=== PATIENT | female | born 1955 | race American Indian/Alaskan Native ===

== ENCOUNTER 2017-01-31 18:07 | Emergency (ER) | payer MEDICAID, OTHER ==
[2017-01-31] MEDS ORDERED: Sodium Chloride 0.9% 10 ML Syringe FLUSH PRN (18:20)
--- NOTE | 2017-01-31 18:28 | EDM.PDOC ---
<Awa Daly - Last Filed: 01/31/17 18:58> ED HPI GENERAL MEDICAL PROBLEM - General Chief Complaint: Chest Pain Stated Complaint: CHEST PAINS, [id number] Time Seen by Provider: 01/31/17 18:22 Source of Information: Reports: Patient History Limitations: Reports: No Limitations - History of Present Illness INITIAL COMMENTS - FREE TEXT/NARRATIVE: Patient presents to the ER with sternal c/o chest pains beginning this afternoon. She states she does have some SOB as well. She has a hx of ND in 2013, and stent placement. She denies nausea or vomiting, fever or chills, recent illness. Onset: Today Location: Reports: Chest Quality: Reports: Ache, Burning Severity: Moderate Improves with: Reports: None Worsens with: Reports: None Associated Symptoms: Reports: Chest Pain Mid-Sternal Chest Pain Score (Numeric/FACES): 10 - Related Data Allergies Allergy/AdvReac Type Severity Reaction Status Date / Time Penicillins Allergy Cannot Verified 09/20/15 13:04 Remember Home Meds: Home Meds Aspirin [Herrera Chewable] 81 mg PO DAILY 02/05/14 [History] Lisinopril 10 mg PO DAILY 02/05/14 [History] metFORMIN [Glucophage] 1,000 mg PO BIDM 02/05/14 [History] Clopidogrel Bisulfate [Clopidogrel] 75 mg PO DAILY 07/21/14 [History] Cyclobenzaprine [Flexeril] 10 mg PO TID PRN 07/21/14 [History] atorvaSTATin [Lipitor] 80 mg PO BEDTIME 07/21/14 [History] Acetaminophen [Tylenol] 650 mg PO Q6HR PRN 06/11/16 [History] FLUoxetine [PROzac] 20 mg PO DAILY 06/11/16 [History] Gabapentin [Neurontin] 300 mg PO BID 06/11/16 [History] glyBURIDE [Glyburide] 5 mg PO BIDMEALS 06/11/16 [History] Ibuprofen 1 tab PO ASDIRECTED PRN 01/31/17 [History] Isosorbide Mononitrate [Isosorbide Mononitrate ER] 0.5 tab PO DAILY 01/31/17 [ History] Metoprolol Tartrate [Metoprolol Tartrate] 12.5 mg PO DAILY 01/31/17 [History] Past Medical History HEENT History: Reports: None Cardiovascular History: Reports: CAD, High Cholesterol, Hypertension, ND Respiratory History: Reports: None Gastrointestinal History: Reports: None Genitourinary 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: Reports: None 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: Musculoskeletal History: Reports: Osteoarthritis Neurological History: Reports: None Psychiatric History: Reports: None Endocrine/Metabolic History: Reports: Diabetes, Type II, Obesity/BMI 30+ Hematologic History: Reports: None Immunologic History: Reports: None Oncologic (Cancer) History: Reports: None Dermatologic History: Reports: None - Infectious Disease History Infectious Disease History: Reports: Chicken Pox - Past Surgical History Cardiovascular Surgical History: Reports: Coronary Artery Stent GI Surgical History: Reports: Appendectomy, Cholecystectomy, Hernia Repair/Other Musculoskeletal Surgical History: Reports: Other (See Below) Social & Family History - Family History Cardiac: Reports: CAD, High Cholesterol, Hypertension GI: Reports: Cholelithiasis : Reports: Renal Disease/Insufficiency Musculoskeletal: Reports: Arthritis Endocrine/Metabolic: Reports: Diabetes, type II, Obesity/MBI 30+ - Tobacco Use Smoking Status *Q: Current Every Day Smoker Years of Tobacco use: 41 Packs/Tins Daily: 0.5 Used Tobacco, but Quit: No Second Hand Smoke Exposure: No - Caffeine Use Caffeine Use: Reports: Coffee - Alcohol Use Days Per Week of Alcohol Use: 0 - Recreational Drug Use Recreational Drug Use: No - Living Situation & Occupation Living situation: Reports: with Family Occupation: Employed ED ROS GENERAL - Review of Systems Review Of Systems: See Below Constitutional: Reports: No Symptoms HEENT: Reports: No Symptoms Respiratory: Reports: Shortness of Breath Cardiovascular: Reports: Chest Pain Endocrine: Reports: No Symptoms ED EXAM, GENERAL - Physical Exam Exam: See Below Exam Limited By: No Limitations General Appearance: Alert, WD/WN, Anxious Throat/Mouth: Normal Inspection, Normal Lips Head: Atraumatic, Normocephalic Neck: Normal Inspection, Supple, Non-Tender, Full Range of Motion Respiratory/Chest: No Respiratory Distress Cardiovascular: Normal Peripheral Pulses, Regular Rate, Rhythm, No Gallop, No JVD, No Murmur, No Rub GI/Abdominal: Normal Bowel Sounds, Soft, Tender (Female) Exam: Deferred Rectal (Female) Exam: Deferred Back Exam: Normal Inspection, Full Range of Motion Extremities: Normal Inspection, Normal Range of Motion, Non-Tender, Pedal Edema Neurological: Alert, Oriented Psychiatric: Normal Affect, Normal Mood Skin Exam: Warm, Dry, Intact, Normal Color, No Rash Lymphatic: No Adenopathy EKG INTERPRETATION EKG Date: 01/31/17 Time: 18:11 Rhythm: NSR Rate (Beats/Min): 94 [place]: Normal P-Wave: Present QRS: Normal ST-T: Normal QT: Normal Comparison: No Change Course - Vital Signs Last Recorded V/S: Last Vital Signs Temp 97.3 F 01/31/17 18:08 Pulse 93 01/31/17 18:08 Resp 24 H 01/31/17 18:08 BP 140/73 01/31/17 18:08 Pulse Ox 98 01/31/17 18:08 - Orders/Labs/Meds Orders: Active Orders 24 hr Category Date Time Status EKG Documentation Completion [RC] STAT Care 01/31/17 18:21 Active Peripheral IV Care [RC] . DIRECTED Care 01/31/17 18:22 Active Chest 1V Frontal [CR] Stat Exams 01/31/17 18:21 Taken UA W/MICROSCOPIC [URIN] Stat Lab 01/31/17 18:21 Uncollected Sodium Chloride 0.9% [Saline Flush] Med 01/31/17 18:20 Active 10 ml FLUSH ASDIRECTED PRN Peripheral IV Insertion Adult [OM.PC] Stat Oth 01/31/17 18:21 Ordered Medication Orders Sodium Chloride (Saline Flush) 10 ml FLUSH ASDIRECTED PRN PRN Reason: Keep Vein Open Last Admin: 01/31/17 20:03 Dose: 10 ml Labs: Laboratory Tests 01/31/17 01/31/17 Range/Units 18:25 18:25 WBC 12.5 H (5.0-10.0) 10^3/uL RBC 4.84 (4.2-5.4) 10^6/uL Hgb 13.1 (12.0-16.0) g/dL Hct 40.6 (37.0-47.0) % MCV 83.9 (80-100) fL MCH 27.1 (27.0-34.0) pg MCHC 32.3 L (33.0-35.0) g/dL Plt Count 277 (150-450) 10^3/uL Neut % (Auto) 58.3 (42.2-75.2) % Lymph % (Auto) 32.1 (20.5-50.1) % [place] % (Auto) 6.9 (2-8) % Eos % (Auto) 2.5 (1.0-3.0) % Baso % (Auto) 0.2 (0.0-1.0) % Sodium 138 (135-145) mmol/L Potassium 3.6 (3.6-5.0) mmol/L Chloride 102 (101-111) mmol/L Carbon Dioxide 23.0 (21.0-31.0) mmol/L Anion Gap 16.6 BUN 15 (7-18) mg/dL Creatinine 0.6 (0.6-1.3) mg/dL Est Cr Clr Drug Dosing 88.60 mL/min Estimated GFR (MDRD) > 60 BUN/Creatinine Ratio 25.00 Glucose 186 H (74-105) mg/dL Calcium 8.9 (8.4-10.2) mg/dl Total Bilirubin 0.3 (0.2-1.0) mg/dL AST 33 (10-42) IU/L ALT 28 (10-60) IU/L Alkaline Phosphatase 55 (42-121) IU/L Troponin I < 0.02 (0.00-0.02) ng/ml Total Protein 7.1 (6.7-8.2) g/dl Albumin 3.9 (3.2-5.5) g/dl Globulin 3.2 Albumin/Globulin Ratio 1.22 Meds: Medications Generic Name Dose Route Start Last Admin Trade Name Freq PRN Reason Stop Dose Admin Sodium Chloride 10 ml 01/31/17 18:20 01/31/17 20:03 Saline Flush FLUSH 10 ml ASDIRECTED PRN Administration Keep Vein Open Discontinued Medications Generic Name Dose Route Start Last Admin Trade Name Freq PRN Reason Stop Dose Admin Al Hydroxide/Mg Hydroxide 30 ml 01/31/17 19:50 01/31/17 20:02 Gi Cocktail PO 01/31/17 19:51 30 ml ONETIME ONE Administration Pantoprazole Sodium 40 mg/ 100 mls @ 20 mls/hr 01/31/17 19:51 Sodium Chloride IV .CONTINUOS MENDEL Pantoprazole Sodium 40 mg 01/31/17 19:58 01/31/17 20:03 Protonix Iv IVPUSH 01/31/17 19:59 40 mg ONETIME ONE Administration Departure - Departure Disposition: Home, Self-Care 01 Clinical Impression: Gastroesophageal reflux disease Qualifiers: Esophagitis presence: esophagitis presence not specified Qualified Code(s): K21.9 - Gastro-esophageal reflux disease without esophagitis Instructions: Nonspecific Chest Pain, [id number], Indigestion, [id number], Heartburn, [id number] Forms: ED Department Discharge Additional Instructions: Symptoms likely related to acid reflux. Omeprazole 20 mg orally twice a day thirty minutes before meal for acid reflux. Prescription provided. Follow up with primary care physician next week at the appointment that you already have. Continue other home medications. <Sonu Street - Last Filed: 01/31/17 20:50> Course - Re-Assessments/Exams Free Text/Narrative Re-Assessment/Exam: 01/31/17 19:52 Patient care was taken over at shift change. Re-evaluation of the patient demonstrated that she has been symptomatic since yesterday. She states she has been feeling "prickly" sensation along middle of her chest (points along the sternum) since yesterday. This is intermittent in nature. She has also been having more acid reflux lately but she is not taking any medication for it. She has also been more active lately and has been walking more. When she overexerts herself, she starts to have more of the "prickly" sensation along with feeling short of breath and having dry cough. Due to overexertion she has also been feeling her legs are swelling more. When she rests then her symptoms are better. She continues to smoke cigarettes. She states she has had a heart attack around 01/2014 and she has one stent in place. She requires being compliant with medications, including aspirin and plavix. She reports she will be following up with PCP Dr. Diehl next week. She is currently feeling better and has been resting comfortably in the ER. Her CV and Resp exams are fairly unremarkable but she has chest wall tenderness upon palpation. She has non-pitting 1+ LE edema. Vitals stable. 01/31/17 20:00 Departure - Departure Time of Disposition: 20:46 Condition: Fair
[2017-01-31 18:36] VITALS: BP 140/73
[2017-01-31 18:51] LABS: CHLORIDE,CL 102 mmol/L (101-111); SODIUM,NA 138 mmol/L (135-145)
[2017-01-31] MEDS ORDERED: GI Cocktail Oral Solution 30 ML PO ONE (19:50)
[2017-01-31] MEDS ORDERED: Pantoprazole 40 MG in Sodium Chloride 0.9% 100 ML IV SCH (19:51)
[2017-01-31] MEDS ORDERED: Pantoprazole 40 MG Vial IVPUSH ONE (19:58)
--- NOTE | 2017-02-04 13:29 | EKG ---
01/31/2017 - NEHEMIAS BRUNO - Qian 12-lead EKG shows normal sinus rhythm with heart rate of 94, W[place] interval of 136, QTc of 476. No significant ST elevation or ST depression noted on this 12- lead EKG. [facility] /[id number]
== END 2017-01-31 21:00 | disposition home or self-care (01) ==
LOC: DL.ED 18:07
DX: K21.9 Gastro-esophageal reflux disease without esophagitis (principal); I25.10 Atherosclerotic heart disease of native coronary artery without angina pectoris; E78.00 Pure hypercholesterolemia, unspecified; I10 Essential (primary) hypertension; I25.2 Old myocardial infarction; E11.9 Type 2 diabetes mellitus without complications; E66.9 Obesity, unspecified; M19.90 Unspecified osteoarthritis, unspecified site; F17.210 Nicotine dependence, cigarettes, uncomplicated; Z90.49 Acquired absence of other specified parts of digestive tract; Z95.5 Presence of coronary angioplasty implant and graft; Z88.0 Allergy status to penicillin; Z79.899 Other long term (current) drug therapy; Z79.82 Long term (current) use of aspirin
CPT/HCPCS: 36415; 71010; 80053; 84484; 85025; 93005; 96374; 99285; A9270; C9113; J7050

== ENCOUNTER 2017-06-15 12:49 | Emergency (ER) | payer MEDICAID, OTHER | END 2017-06-15 13:21 | LOC: DL.ED 12:49 | DX: Z53.21 Procedure and treatment not carried out due to patient leaving prior to being seen by health care provider (principal) ==

== ENCOUNTER 2017-07-18 18:24 | Emergency (ER) | payer MEDICAID, OTHER ==
[2017-07-18 18:41] VITALS: BP 130/58
== END 2017-07-18 20:29 | disposition left against medical advice (07) ==
LOC: DL.ED 18:24
DX: Z53.21 Procedure and treatment not carried out due to patient leaving prior to being seen by health care provider (principal)

== ENCOUNTER 2018-09-22 20:53 | Emergency (ER) | payer MEDICARE, MEDICAID ==
[2018-09-22 21:21] VITALS: BP 141/59
--- NOTE | 2018-09-22 22:29 | EDM.PDOC ---
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 No clinic visit. No fever or chills , no flank pain, no nausea or vomiting. Diabetic, denies elevation in blood sugars Bladder Pain Score (Numeric/FACES): 10 - Related Data Allergies Allergy/AdvReac Type Severity Reaction Status Date / Time Penicillins Allergy Cannot Verified 09/22/18 21:26 Remember Home Meds: Home Meds Aspirin [Herrera Chewable] 81 mg PO DAILY 02/05/14 [History] Lisinopril 10 mg PO DAILY 02/05/14 [History] metFORMIN [Glucophage] 1,000 mg PO BIDM 02/05/14 [History] Clopidogrel Bisulfate [Clopidogrel] 75 mg PO DAILY 07/21/14 [History] Cyclobenzaprine [Flexeril] 10 mg PO TID PRN 07/21/14 [History] atorvaSTATin [Lipitor] 80 mg PO BEDTIME 07/21/14 [History] Acetaminophen [Tylenol] 650 mg PO Q6HR PRN 06/11/16 [History] FLUoxetine [PROzac] 20 mg PO DAILY 06/11/16 [History] Gabapentin [Neurontin] 300 mg PO BID 06/11/16 [History] glyBURIDE [Glyburide] 5 mg PO BIDMEALS 06/11/16 [History] Ibuprofen 1 tab PO ASDIRECTED PRN 01/31/17 [History] Isosorbide Mononitrate [Isosorbide Mononitrate ER] 0.5 tab PO DAILY 01/31/17 [ History] Metoprolol Tartrate 12.5 mg PO DAILY 01/31/17 [History] Past Medical History HEENT History: Reports: None Cardiovascular History: Reports: CAD, High Cholesterol, Hypertension, HI Respiratory History: Reports: None Gastrointestinal History: Reports: None Genitourinary History: Reports: 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: Musculoskeletal History: Reports: Osteoarthritis Other Musculoskeletal History: restless legs Neurological History: Reports: None Psychiatric History: Reports: None Endocrine/Metabolic History: Reports: Diabetes, Type II, Obesity/BMI 30+ Hematologic History: Reports: None Immunologic History: Reports: None Oncologic (Cancer) History: Reports: None Dermatologic History: Reports: None - Infectious Disease History Infectious Disease History: Reports: Chicken Pox - Past Surgical History Cardiovascular Surgical History: Reports: Coronary Artery Stent GI Surgical History: Reports: Appendectomy, Cholecystectomy, Hernia Repair/Other Social & Family History - Family History Cardiac: Reports: CAD, High Cholesterol, Hypertension GI: Reports: Cholelithiasis : Reports: Renal Disease/Insufficiency Musculoskeletal: Reports: Arthritis Endocrine/Metabolic: Reports: Diabetes, type II, Obesity/MBI 30+ - Tobacco Use Smoking Status *Q: Current Every Day Smoker Years of Tobacco use: 43 Packs/Tins Daily: 1 Second Hand Smoke Exposure: Yes - Caffeine Use Caffeine Use: Reports: Coffee - Recreational Drug Use Recreational Drug Use: No - Living Situation & Occupation Living situation: Reports: with Family Occupation: Employed ED ROS GENERAL - Review of Systems Review Of Systems: ROS reveals no pertinent complaints other than HPI. ED EXAM, RENAL/ - Physical Exam Exam: See Below Exam Limited By: No Limitations General Appearance: Alert, No Apparent Distress Eye Exam: Bilateral Eye: EOMI Ears: Normal External Exam, Hearing Grossly Normal Nose: Normal Inspection Throat/Mouth: Normal Inspection, Normal Voice Head: Atraumatic, Normocephalic Neck: Normal Inspection Respiratory/Chest: No Respiratory Distress, Lungs Clear Cardiovascular: Normal Peripheral Pulses, Regular Rate, Rhythm GI/Abdominal: Normal Bowel Sounds, Soft, Tender (suprapubic) Back Exam: Normal Inspection. No: CVA Tenderness (L), CVA Tenderness (R) Neurological: Alert, Oriented Psychiatric: Normal Affect Skin Exam: Warm, Dry, Intact, Normal Color Course - Vital Signs Last Recorded V/S: Last Vital Signs Temp 97.8 F 09/22/18 21:18 Pulse 82 09/22/18 21:18 Resp 18 09/22/18 21:18 BP 141/59 H 09/22/18 21:18 Pulse Ox 98 09/22/18 21:18 - Orders/Labs/Meds Orders: Active Orders 24 hr Category Date Time Status CULTURE URINE [RM] Stat Lab 09/22/18 21:28 Received Labs: Laboratory Tests 09/22/18 Range/Units 21:28 Urine Color Light yellow (YELLOW) Urine Appearance Clear (CLEAR) Urine pH 6.5 (5.0-9.0) Ur Specific [place] <= 1.005 (1.005-1.030) Urine Protein Trace H (NEGATIVE) Urine Glucose (UA) Negative (NEGATIVE) Urine Ketones Negative (NEGATIVE) Urine Occult Blood Moderate H (NEGATIVE) Urine Nitrite Negative (NEGATIVE) Urine Bilirubin Negative (NEGATIVE) Urine Urobilinogen 0.2 (0.2-1.0) mg/dL Ur Leukocyte Esterase Small H (NEGATIVE) Urine RBC 0-5 /HPF Urine WBC 30-40 H (0-5/HPF) /HPF Ur Epithelial Cells Rare /HPF Amorphous Sediment Rare (0/HPF) /HPF Urine Bacteria Rare (0-FEW/HPF) /HPF Urine Mucus Not seen /LPF Meds: Medications Discontinued Medications Generic Name Dose Route Start Last Admin Trade Name Naveenq PRN Reason Stop Dose Admin Ciprofloxacin 500 mg 09/22/18 22:28 09/22/18 22:32 Ciprofloxacin Hcl PO 09/22/18 22:29 500 mg ONETIME ONE Administration Phenazopyridine HCl 190 mg 09/22/18 22:23 09/22/18 22:32 Urinary Pain Relief PO 09/22/18 22:24 190 mg ONETIME ONE Administration Departure - Departure Time of Disposition: 22:29 Disposition: Home, Self-Care 01 Condition: Good Clinical Impression: UTI, Urinary tract infectious disease Diabetes Qualifiers: Diabetes mellitus type: type 2 Diabetes mellitus senior care insulin 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 Diabetes mellitus complication status: without complication Qualified Code(s): E11.9 - Type 2 diabetes mellitus without complications - Discharge Information *PRESCRIPTION DRUG MONITORING PROGRAM REVIEWED*: Not Applicable *COPY OF PRESCRIPTION DRUG MONITORING REPORT IN PATIENT [place]: Not Applicable Instructions: Urinary Tract Infection, Adult Forms: ED Department Discharge Additional Instructions: cipro 500mg one twice daily for 5 days fluids pyridium 190mg every 8 hours as needed for urinary symptoms follow up if symptoms worsen, fever, weakness, poor control of blood sugars - My Orders Last 24 Hours: My Active Orders 09/22/18 21:28 CULTURE URINE [RM] Stat - Assessment/Plan Last 24 Hours: My Active Orders 09/22/18 21:28 CULTURE URINE [RM] Stat
[2018-09-22] MEDS: Ciprofloxacin 500 MG Tab PO ONE (22:32)
[2018-09-22] MEDS: Phenazopyridine 95 MG Tab PO ONE (22:32)
== END 2018-09-22 22:39 | disposition home or self-care (01) ==
LOC: DL.ED 20:53
DX: N39.0 Urinary tract infection, site not specified (principal); I25.10 Atherosclerotic heart disease of native coronary artery without angina pectoris; E78.00 Pure hypercholesterolemia, unspecified; I10 Essential (primary) hypertension; I25.2 Old myocardial infarction; E11.9 Type 2 diabetes mellitus without complications; Z79.84 Long term (current) use of oral hypoglycemic drugs; F17.210 Nicotine dependence, cigarettes, uncomplicated; Z88.0 Allergy status to penicillin; Z79.82 Long term (current) use of aspirin; Z79.899 Other long term (current) drug therapy; Z79.01 Long term (current) use of anticoagulants
CPT/HCPCS: 81001; 87086; 87088; 87186; 99283; A9270

== ENCOUNTER → 2018-11-16 | Outpatient (CLI) | payer MEDICARE, MEDICAID | LOC: DL.US 08:48 | PROVIDERS: ATTEND Internal Medicine | DX: R06.02 Shortness of breath (principal); I51.7 Cardiomegaly | CPT/HCPCS: 93306 ==

== ENCOUNTER 2021-09-19 16:18 | Emergency (ER) | payer MEDICARE, MEDICAID ==
[2021-09-19 16:20] LABS: PTT,PARTIAL THROMBOPLSTIN TIME 23.3 SEC (22.0-34.0)
[2021-09-19 16:31] LABS: ANION GAP 14.4 mEq/L (7-13); CHLORIDE,CL 100 mmol/L (98-107); SODIUM,NA 135 mmol/L (136-145)
[2021-09-19] MEDS ORDERED: Sodium Chloride 0.9% 1,000 ML IV ONE (16:47)
[2021-09-19] MEDS ORDERED: Acetaminophen 500 MG Tab PO ONE (16:56)
== END 2021-09-19 17:49 | disposition home or self-care (01) ==
LOC: DL.ED 16:18
DX: S00.03XA Contusion of scalp, initial encounter (principal); M25.521 Pain in right elbow; M79.89 Other specified soft tissue disorders; D68.9 Coagulation defect, unspecified; I25.10 Atherosclerotic heart disease of native coronary artery without angina pectoris; E78.00 Pure hypercholesterolemia, unspecified; I10 Essential (primary) hypertension; I25.2 Old myocardial infarction; M19.90 Unspecified osteoarthritis, unspecified site; E11.9 Type 2 diabetes mellitus without complications; E66.9 Obesity, unspecified; Z68.38 Body mass index [BMI] 38.0-38.9, adult; Z88.0 Allergy status to penicillin; Z79.82 Long term (current) use of aspirin; Z79.02 Long term (current) use of antithrombotics/antiplatelets; Z79.84 Long term (current) use of oral hypoglycemic drugs; Z79.899 Other long term (current) drug therapy; W00.0XXA Fall on same level due to ice and snow, initial encounter
CPT/HCPCS: 36415; 70450; 72125; 73090-RT; 80053; 80307; 82947; 83605; 85025; 85610; 85730; 99284; 99284-25; A9270-GY; J7030

== ENCOUNTER 2023-07-23 07:27 | Day surgery (SDC) | payer MEDICARE, MEDICAID ==
[2023-07-23] MEDS ORDERED: Acetaminophen 325 MG Tab PO PRN (07:30)
[2023-07-23] MEDS ORDERED: Ondansetron 4 MG/2 ML SDV IVPUSH PRN (07:30)
[2023-07-23] MEDS ORDERED: Acetaminophen/Codeine 300-30 MG Tab PO PRN (07:30)
[2023-07-23] MEDS: Proparacaine 0.5% Ophth Soln 15 ML Bottle EYELF ONE ×2 (08:13→08:44)
[2023-07-23] MEDS: Moxifloxacin 0.5% Ophth Soln 3 ML Bottle EYELF ONE (08:13)
[2023-07-23] MEDS: Povidone-Iodine 5% Sterile Ophth Soln 30 ML Bottle EYELF ONE ×2 (08:14→08:44)
[2023-07-23] MEDS: Tropicamide 1% Ophth Soln 15 ML Bottle EYELF ONE (08:15)
[2023-07-23] MEDS: Phenylephrine 10% Ophth Soln 5 ML Bot EYELF PRN (08:15)
[2023-07-23] MEDS: Timolol Maleate 0.5% Ophth Soln 5 ML Bottle EYELF ONE (08:15)
[2023-07-23] MEDS: Cataract Ophth Solution EYELF ONE (08:16)
[2023-07-23] MEDS: Sodium Chloride 0.9% 10 ML Syringe FLUSH PRN (08:17)
[2023-07-23] MEDS: Apraclonidine 0.5% Ophth Soln 5 ML Bot EYELF ONE (08:45)
[2023-07-23] MEDS: Diclofenac Sodium 0.1% Ophth Soln 5 ML Bottle EYELF ONE (08:45)
[2023-07-23] MEDS: Dexamethasone/Neomycin/Polymyxin B Ophth Oint 3.5 GM Tube EYELF ONE (08:45)
[2023-07-23] MEDS: Vancomycin 500 MG SDV EYELF ONE (08:46)
[2023-07-23] MEDS: Lidocaine 1% 30 ML SDV INJECT ONE (08:46)
[2023-07-23 09:35] VITALS: BP 133/62; PULSE 74
== END 2023-07-23 09:49 | disposition home or self-care (01) ==
LOC: DL.SDS 07:27
PROVIDERS: ATTEND Ophthalmology
DX: E11.36 Type 2 diabetes mellitus with diabetic cataract (principal); H25.812 Combined forms of age-related cataract, left eye; M17.0 Bilateral primary osteoarthritis of knee; I25.10 Atherosclerotic heart disease of native coronary artery without angina pectoris; F32.A Depression, unspecified; I10 Essential (primary) hypertension; I35.0 Nonrheumatic aortic (valve) stenosis; E78.5 Hyperlipidemia, unspecified; E88.09 Other disorders of plasma-protein metabolism, not elsewhere classified; J45.40 Moderate persistent asthma, uncomplicated; D50.9 Iron deficiency anemia, unspecified; E11.42 Type 2 diabetes mellitus with diabetic polyneuropathy; E66.9 Obesity, unspecified; I21.3 ST elevation (STEMI) myocardial infarction of unspecified site; E78.49 Other hyperlipidemia; I21.02 ST elevation (STEMI) myocardial infarction involving left anterior descending coronary artery; G47.00 Insomnia, unspecified; Z79.82 Long term (current) use of aspirin; Z79.01 Long term (current) use of anticoagulants; Z79.4 Long term (current) use of insulin; Z79.899 Other long term (current) drug therapy; Z79.02 Long term (current) use of antithrombotics/antiplatelets; Z88.0 Allergy status to penicillin; Z88.5 Allergy status to narcotic agent; Z68.38 Body mass index [BMI] 38.0-38.9, adult
CPT/HCPCS: A9270-GY; J3370; J3490; V2632

== ENCOUNTER 2023-08-06 08:27 | Day surgery (SDC) | payer MEDICARE, MEDICAID ==
[~2023-08-06 08:27] MED LIST: Acetaminophen 325 MG Tab PO PRN; Acetaminophen/Codeine 300-30 MG Tab PO PRN; Ondansetron 4 MG/2 ML SDV IVPUSH PRN
[2023-08-06] MEDS ORDERED: Midazolam 1 MG/ML 2 ML SDV IV ONE (08:28)
[2023-08-06] MEDS ORDERED: Dexamethasone 4 MG/ML SDV IV ONE (08:28)
[2023-08-06] MEDS ORDERED: Sodium Chloride 0.9% 10 ML Syringe IV ONE (08:28)
[2023-08-06] MEDS: Moxifloxacin 0.5% Ophth Soln 3 ML Bottle EYERT ONE (08:42)
[2023-08-06] MEDS: Proparacaine 0.5% Ophth Soln 15 ML Bottle EYERT ONE ×3 (08:42→09:10)
[2023-08-06] MEDS: Povidone-Iodine 5% Sterile Ophth Soln 30 ML Bottle EYERT ONE (08:43)
[2023-08-06] MEDS: Tropicamide 1% Ophth Soln 15 ML Bottle EYERT ONE (08:43)
[2023-08-06] MEDS: Phenylephrine 10% Ophth Soln 5 ML Bot EYERT PRN (08:44)
[2023-08-06] MEDS: Timolol Maleate 0.5% Ophth Soln 5 ML Bottle EYERT ONE (08:44)
[2023-08-06] MEDS: Cataract Ophth Solution EYERT ONE (08:45)
[2023-08-06] MEDS: Sodium Chloride 0.9% 10 ML Syringe FLUSH PRN (08:49)
[2023-08-06] MEDS: Balanced Salt Solution Ophth Irrig 15 ML Bottle EYERT ONE ×2 (08:52→09:10)
[2023-08-06] MEDS: Lidocaine 1% 30 ML SDV ONE ×2 (08:53→09:16)
[2023-08-06] MEDS: Balanced Salt Solution Ophth Irrig 500 ML Bottle IOCULAR ONE ×2 (08:54→09:16)
[2023-08-06] MEDS: Vancomycin 500 MG SDV EYERT ONE ×2 (08:54→09:16)
[2023-08-06] MEDS: Chondroitin Sulfate/Hyaluronate Sodium Ophth Inj 0.75 ML Syringe EYERT ONE ×2 (08:55→09:17)
[2023-08-06] MEDS: Apraclonidine 0.5% Ophth Soln 5 ML Bot EYERT ONE ×2 (08:55→09:23)
[2023-08-06] MEDS: Diclofenac Sodium 0.1% Ophth Soln 5 ML Bottle EYERT ONE ×2 (08:55→09:23)
[2023-08-06] MEDS: Dexamethasone/Neomycin/Polymyxin B Ophth Oint 3.5 GM Tube EYERT ONE ×2 (08:56→09:23)
[2023-08-06 10:06] VITALS: BP 116/50; PULSE 78
== END 2023-08-06 10:23 | disposition home or self-care (01) ==
LOC: DL.SDS 08:27
PROVIDERS: ATTEND Ophthalmology
DX: E11.36 Type 2 diabetes mellitus with diabetic cataract (principal); I10 Essential (primary) hypertension; E78.5 Hyperlipidemia, unspecified; I73.9 Peripheral vascular disease, unspecified; H26.9 Unspecified cataract; E11.42 Type 2 diabetes mellitus with diabetic polyneuropathy; I25.10 Atherosclerotic heart disease of native coronary artery without angina pectoris; E78.49 Other hyperlipidemia; F17.200 Nicotine dependence, unspecified, uncomplicated; I21.02 ST elevation (STEMI) myocardial infarction involving left anterior descending coronary artery; E11.8 Type 2 diabetes mellitus with unspecified complications; I35.0 Nonrheumatic aortic (valve) stenosis; M19.90 Unspecified osteoarthritis, unspecified site; Z79.4 Long term (current) use of insulin; Z79.899 Other long term (current) drug therapy; Z88.0 Allergy status to penicillin
CPT/HCPCS: 00142; A9270-GY; J1100; J2250; J3370; J3490; V2632

== ENCOUNTER 2024-06-30 21:07 | Emergency (ER) | payer MEDICAID, MEDICARE ==
[2024-06-30] MEDS: Aspirin 81 MG Tab.Chew PO ONE (21:53)
[2024-06-30 22:08] LABS: BASOPHILS PERCENT AUTO 0.2 % (0.0-1.0); EOSINOPHILS PERCENT AUTO 3.1 % (1.0-3.0); HEMATOCRIT 46.2 % (37.0-47.0); HEMOGLOBIN 15.2 g/dL (12.0-16.0); LYMPHOCYTES PERCENT AUTO 26.1 % (20.5-50.1); MEAN CORPUSCULAR HEMOGLOBIN 27.6 pg (27.0-34.0); MEAN CORPUSCULAR HGB CONC 32.9 g/dL (33.0-35.0); MEAN CORPUSCULAR VOLUME 83.8 fL (80-100); MONOCYTES PERCENT AUTO 7.5 % (2-8); NEUTROPHILS PERCENT AUTO 63.1 % (42.2-75.2); PLATELET COUNT,PLT 254 10^3/uL (150-450); RED BLOOD CELL COUNT 5.51 10^6/uL (4.2-5.4); WHITE BLOOD CELL COUNT,WBC 10.5 10^3/uL (5.0-10.0)
[2024-06-30 22:26] LABS: ALBUMIN 3.2 g/dL (3.4-5.0); ANION GAP 12.7 mEq/L (7-13); BILIRUBIN TOTAL 0.3 mg/dL (0.2-1.0); BUN/CREATININE RATIO 14.1 (No establ ref range); CALCIUM 8.7 mg/dL (8.5-10.1); CREATININE 0.85 mg/dL (0.55-1.02); EST CRCL DRUG DOSING (CG) 53.94 mL/min; MAGNESIUM 2.2 mg/dL (1.8-2.4); POTASSIUM,K 3.7 mmol/L (3.5-5.1); PROTEIN TOTAL,TP 7.2 g/dL (6.4-8.2)
[2024-06-30 22:29] LABS: A/G RATIO 0.8
[2024-06-30 22:58] VITALS: BP 116/61; PULSE 100
== END 2024-07-01 00:39 | disposition home or self-care (01) ==
LOC: DL.ED 21:07
DX: R07.89 Other chest pain (principal); I10 Essential (primary) hypertension; E78.00 Pure hypercholesterolemia, unspecified; I25.10 Atherosclerotic heart disease of native coronary artery without angina pectoris; E11.9 Type 2 diabetes mellitus without complications; E66.9 Obesity, unspecified; Z90.49 Acquired absence of other specified parts of digestive tract; Z79.899 Other long term (current) drug therapy; Z79.4 Long term (current) use of insulin; Z79.82 Long term (current) use of aspirin; Z88.8 Allergy status to other drugs, medicaments and biological substances; Z88.0 Allergy status to penicillin; Z68.38 Body mass index [BMI] 38.0-38.9, adult
CPT/HCPCS: 36415; 71045; 80053; 83735; 83880; 84484; 85025; 99285; A9270-GY